=== PATIENT | male | born 1995 | race Caucasian/White ===

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

== ENCOUNTER → 2017-11-17 | Outpatient (CLI) | payer OTHER, BC ==
[2017-11-21 00:07] LABS: HERPES ZOSTER, VARICELLA IgG 3774 index (Immune >165)
[2017-11-21 00:07] LABS: HERPES ZOSTER, VARICELLA IgM <0.91 index (0.00-0.90)
== END ==
LOC: M WUC 15:16
DX: Z11.59 Encounter for screening for other viral diseases (principal)
CPT/HCPCS: 86787

== ENCOUNTER 2018-10-14 16:14 | Emergency (ER) | payer BC, OTHER ==
[~2018-10-14] VITALS: Ht 177.8 cm; Wt 73.5 kg
[~2018-10-14 16:14] MED LIST changes: +PERC5TAB12 PO
[2018-10-14] MEDS ORDERED: PAXI30TA11 PO (16:20)
[2018-10-14] MEDS ORDERED: NS 1,000 ML IV ONE (16:30)
[2018-10-14 16:54] LABS: BASO # 0.1 10^3/uL (0.0-0.2); BASO % 0.8 % (0.0-1.0); EOS % 0.3 % (0.0-3.0); HEMATOCRIT 47.5 % (42.0-52.0); HEMOGLOBIN 16.5 g/dl (13.5-17.5); LYMPH % 16.8 % (24.0-44.0); MEAN CORPUSCULAR HEMOGLOBIN 31.2 pg (27.0-33.0); MEAN CORPUSCULAR HGB CONC 34.7 g/dl (32.0-36.5); MEAN CORPUSCULAR VOLUME 89.8 fl (80.0-96.0); MONO # 1.1 10^3/uL (0.0-0.8); MONO % 18.1 % (0.0-5.0); NEUTROPHILS # 3.9 10^3/uL (1.8-7.7); NEUTROPHILS % 63.7 % (36.0-66.0); PLATELET COUNT, AUTOMATED 157 10^3/uL (150-450); RED BLOOD COUNT 5.29 10^6/uL (4.30-6.10); WHITE BLOOD COUNT 6.1 10^3/uL (4.0-10.0)
[2018-10-14 17:14] LABS: ALT/SGPT 26 U/L (12-78); BILIRUBIN,TOTAL 0.5 MG/DL (0.2-1.0); BLOOD UREA NITROGEN 10 MG/DL (7-18); CALCIUM LEVEL 8.5 MG/DL (8.5-10.1); CARBON DIOXIDE LEVEL 29 MEQ/L (21-32); CHLORIDE LEVEL 103 MEQ/L (98-107); CREATININE FOR GFR 0.98 MG/DL (0.70-1.30); GLOMERULAR FILTRATION RATE > 60.0 (>60); GLUCOSE, FASTING 96 MG/DL (70-100); SODIUM LEVEL 139 MEQ/L (136-145); TOTAL PROTEIN 7.3 GM/DL (6.4-8.2)
[2018-10-14] MEDS ORDERED: ONDANSETRON 4MG/2ML VIAL (J2405) IV ONE (17:30)
[2018-10-14] MEDS ORDERED: KETOROLAC 30 MG/ML VIAL (J1885) IV ONE (17:30)
[2018-10-14 17:40] LABS: MONO REFLEX EBV COMP NEGATIVE (NEGATIVE)
--- NOTE | 2018-10-14 18:10 | REPVR ---
EXAM: CT Head Without Contrast EXAM DATE/TIME: 10/14/2018 5:34 PM CLINICAL HISTORY: 23 years old, male; Pain; Headache not specified; Additional info: Severe headache TECHNIQUE: Imaging protocol: Axial computed tomography images of the head without contrast. Radiation optimization: All CT scans at this facility use at least one of these dose optimization techniques: automated exposure control; mA and/or kV adjustment per patient size (includes targeted exams where dose is matched to clinical indication); or iterative reconstruction. COMPARISON: MRI-Brain without Contrast 12/20/2014 2:21 PM FINDINGS: Brain: No intracranial mass, mass effect or midline shift. No acute intracranial hemorrhage. No CT evidence of acute cortical infarct. Ventricles: Ventricles, cisterns, and sulci are normal in size for age. Bones/joints: No calvarial fracture or destructive process. Sinuses: Imaged paranasal sinuses are clear. Mastoid air cells: Mastoid air cells are normally aerated. Orbits: Imaged orbits are unremarkable. Soft tissues: No focal extracranial soft tissue swelling. IMPRESSION: No acute or concerning focal intracranial abnormality. Electronically signed by: Michael Babb On 10/14/2018 18:09:41 PM
[2018-10-14] MEDS ORDERED: cefTRIAXone SOD 2 GM in D5W MINI-BAG PLUS 50 ML IV ONE (20:00)
[2018-10-14 21:08] LABS: APPEARANCE, CSF CLEAR (CLEAR); COLOR, CSF COLORLESS (COLORLESS); CSF TUBE# CELL CNT TUBE 4
[2018-10-14 21:11] LABS: CSF TUBE# CELL CNT TUBE 1
[2018-10-14 21:12] LABS: APPEARANCE, CSF HAZY (CLEAR); COLOR, CSF PINK (COLORLESS)
[2018-10-14 21:16] LABS: CSF TUBE# GLU TUBE 3; CSF TUBE# TP TUBE 3; GLUCOSE CSF 57 MG/DL (40-75); TOTAL PROTEIN,CSF 45 MG/DL (15-45)
[2018-10-15 00:03] VITALS: BP 127/84
[2018-10-17 00:07] LABS: EBV AB TO NUCLEAR ANTIGEN >600.0 U/mL (0.0-17.9); EBV VIRAL CAPSID AG IgM <36.0 U/mL (0.0-35.9); Lyme Disease IgG/IgM Antibodie <0.91 ISR (0.00-0.90); Lyme Disease IgM Ab Quantitati <0.80 index (0.00-0.79)
== END 2018-10-15 00:04 | disposition home or self-care (01) ==
LOC: M ED 16:14
DX: B34.9 Viral infection, unspecified (principal); R51 Headache; M25.50 Pain in unspecified joint; R68.83 Chills (without fever); R05 Cough; K21.9 Gastro-esophageal reflux disease without esophagitis; F41.9 Anxiety disorder, unspecified; F32.9 Major depressive disorder, single episode, unspecified; Z88.0 Allergy status to penicillin; Z88.8 Allergy status to other drugs, medicaments and biological substances; Z79.899 Other long term (current) drug therapy
CPT/HCPCS: 36415; 62270; 70450; 80053; 82945; 83605; 84157; 85025; 86308; 86617; 86663; 86664; 86665; 87040; 87070; 87205; 87483; 89050; 89051; 96365; 96366; 96375; 99284; J0696; J1885; J2405

== ENCOUNTER → 2020-12-08 | Outpatient (CLI) | payer BC, OTHER ==
[~2020-12-08] MED LIST changes: +CLIN75CA PO; +OMEP40CA4 PO; +PAXI30TA11 PO
== END ==
LOC: M LABSMTC 10:47
PROVIDERS: ATTEND Anesthesiology
DX: Z01.812 Encounter for preprocedural laboratory examination (principal); Z20.828 Contact with and (suspected) exposure to other viral communicable diseases

== ENCOUNTER 2020-12-13 09:18 | Day surgery (SDC) | payer BC ==
[~2020-12-13] VITALS: Ht 177.8 cm; Wt 83.4 kg
[~2020-12-13 09:18] MED LIST changes: +LIDOCAINE 1% MDV 20ML VIAL SQ PRN
[2020-12-13] MEDS ORDERED: LR 1,000 ML IV ONE (09:30)
[2020-12-13] MEDS ORDERED: METHYLENE BLUE 0.5% (5MG/ML) 10 ML AMP (PROVAYBLUE) As Ordered ONE (10:15)
[2020-12-13] MEDS ORDERED: EPINEPHrine 1MG/ML INJ 30ML MD-VIAL As Ordered ONE (10:15)
[2020-12-13] MEDS ORDERED: LIDOCAINE W/EPINEPHRINE 1% 20ML VIAL As Ordered ONE (10:15)
[2020-12-13] MEDS ORDERED: SUGAMMADEX SODIUM 500 MG/5 ML VIAL (BRIDION) As Ordered ONE (11:15)
[2020-12-13] MEDS ORDERED: fentaNYL 100 MCG/2 ML INJECTION (J3010) As Ordered ONE (11:15)
[2020-12-13] MEDS ORDERED: dexameTHASONE 4 MG/ML 1ML VIAL (J1100 PER 1MG) As Ordered ONE (11:15)
[2020-12-13] MEDS ORDERED: MIDAZOLAM INJ 2MG/2ML VIAL (J2250 PER 1MG) As Ordered ONE (11:15)
[2020-12-13] MEDS ORDERED: LIDOCAINE 2% 100MG/5ML SDV (FOR ANES.) As Ordered ONE (11:15)
[2020-12-13] MEDS ORDERED: ROCURONIUM BROMIDE 50 MG/5 ML VIAL As Ordered ONE (11:15)
[2020-12-13] MEDS ORDERED: propofoL 200 MG/20 ML VIAL As Ordered ONE (11:15)
[2020-12-13] MEDS ORDERED: HYDROmorphone HCL 2 MG/ML 1ML VIAL As Ordered ONE (11:15)
[2020-12-13] MEDS ORDERED: ONDANSETRON 4MG/2ML VIAL As Ordered ONE (11:15)
[2020-12-13] MEDS ORDERED: LR 1,000 ML IV SCH ×2 (12:40)
[2020-12-13] MEDS ORDERED: oxyCODONE 5MG TAB PO PRN (12:40)
[2020-12-13] MEDS ORDERED: fentaNYL 100 MCG/2 ML INJECTION (J3010) IV PRN (12:40)
[2020-12-13] MEDS ORDERED: METOCLOPRAMIDE INJ 10MG/2ML VIAL (J2765 PER 1) IV PRN (12:40)
[2020-12-13] MEDS ORDERED: ONDANSETRON 4MG/2ML VIAL IV PRN (12:40)
[2020-12-13] MEDS ORDERED: ACETAMINOPH W/CODEINE #3 TAB UD PO PRN (12:45)
--- NOTE | 2020-12-13 13:50 | RO ---
OPERATIVE NOTE DATE OF OPERATION: 12/13/2020 PREOPERATIVE DIAGNOSIS: Nasoseptal deviation, chronic rhinitis. POSTOPERATIVE DIAGNOSIS: Nasoseptal deviation, chronic rhinitis. PROCEDURE: Bilateral turbinectomies, septoplasty. SURGEON: CARLOS MAZARIEGOS MD DESCRIPTION OF PROCEDURE: Under general anesthesia, the patient was prepped and draped in the usual manner. I infiltrated the submucosa with Lidocaine and Epinephrine. I used pledgets soaked in adrenaline 1:100,000. I made an incision anteriorly on the left side and elevated the subperichondrial and periosteal plane. I then divided the quadrangular cartilage from the ethmoid plate and maxillary crest. I removed portions of both maxillary crest and ethmoid plate and there was a vomer spur on the left side. Once this was done, the septum was straight. The incision was closed with interrupted 4-0 Chromic, 4-0 Monocryl. I made an incision anterior to the inferior turbinates on both sides. I elevated the mucosa. I used a micro debrider to remove a portion of the desirae on both sides. I closed the incision with Monocryl 4-0. The patient tolerated the procedure well. Less than 20 mL estimated blood loss. The patient tolerated the procedure well, was extubated and transferred to the Recovery Room in excellent condition.
[2020-12-13] MEDS ORDERED: OXYMETAZOLINE 0.05% NASAL SPRAY (AFRIN) SCH (15:45)
[2020-12-13] MEDS ORDERED: MORPHINE 10 MG/ML 1ML VIAL (J2270) IV ONE (15:55)
[2020-12-13] MEDS ORDERED: SUCCINYLCHOLINE 100 MG/5 ML SYRINGE (J0330) ONE (17:00)
[2020-12-13] MEDS ORDERED: propofoL 200 MG/20 ML VIAL ONE (17:00)
[2020-12-13] MEDS ORDERED: LIDOCAINE 2% 100MG/5ML SDV (FOR ANES.) ONE (17:00)
[2020-12-13] MEDS ORDERED: ROCURONIUM BROMIDE 50 MG/5 ML VIAL ONE (17:00)
[2020-12-13] MEDS ORDERED: fentaNYL 100 MCG/2 ML INJECTION (J3010) ONE (17:01)
[2020-12-13] MEDS ORDERED: EPINEPHrine 1MG/ML INJ 30ML MD-VIAL ONE (17:01)
[2020-12-13] MEDS ORDERED: dexameTHASONE 4 MG/ML 1ML VIAL (J1100 PER 1MG) ONE (17:35)
[2020-12-13] MEDS ORDERED: SUGAMMADEX SODIUM 500 MG/5 ML VIAL (BRIDION) ONE (17:35)
[2020-12-13] MEDS ORDERED: ONDANSETRON 4MG/2ML VIAL ONE (17:35)
[2020-12-13 19:52] VITALS: BP 163/81
--- NOTE | 2020-12-14 09:16 | RO ---
OPERATIVE NOTE DATE OF OPERATION: 12/13/2020 PREOPERATIVE DIAGNOSIS: Postop nasal hemorrhage. POSTOPERATIVE DIAGNOSIS: Postop nasal hemorrhage. PROCEDURE: Control postop nasal hemorrhage, nasal cautery, nasal packing. SURGEON: Harjinder Griffith MD BUSINESS ADMINISTRATION PROFESSOR: ANESTHESIA: DESCRIPTION OF PROCEDURE: Under general anesthesia with the patient intubated, the patient was draped in usual manner. I removed the packing I had placed in his nose. There was bleeding anteriorly in inferior turbinate on the left side which I cauterized with suction cautery. I put packing 0.5 inch Vaseline gauze both sides of the nose. The patient tolerated the procedure well. 50 mL estimated blood loss. The patient was extubated and transferred to recovery room in excellent condition.
[2020-12-14] MEDS ORDERED: LR 1,000 ML IV SCH (10:45)
[2020-12-14] MEDS ORDERED: ACETAMINOPH W/CODEINE #3 TAB UD PO PRN (10:45)
== END 2020-12-14 14:30 | disposition home or self-care (01) ==
LOC: M SDC 09:18 → M MS5PR 20:00 → M SDC 12-14 14:30
PROVIDERS: ATTEND Otolaryngology
DX: J34.2 Deviated nasal septum (principal); J31.0 Chronic rhinitis; J95.830 Postprocedural hemorrhage of a respiratory system organ or structure following a respiratory system procedure; K21.9 Gastro-esophageal reflux disease without esophagitis; F41.9 Anxiety disorder, unspecified; F32.9 Major depressive disorder, single episode, unspecified; F17.218 Nicotine dependence, cigarettes, with other nicotine-induced disorders; Z79.899 Other long term (current) drug therapy; Z88.0 Allergy status to penicillin
CPT/HCPCS: 30140; 30520; 30901; 88300; 88305; J0330; J1100; J1170; J2250; J2405; J3010; Q9968

== ENCOUNTER → 2021-04-04 | Outpatient (CLI) | payer BC ==
[~2021-04-04] MED LIST changes: -LIDOCAINE 1% MDV 20ML VIAL SQ PRN
--- NOTE | 2021-04-09 20:55 | SLEEPHOME ---
DATE: 04/04/2021 ORDERED BY: Felisha Garcia NP Diagnostic home sleep testing was performed due to concern for the obstructive sleep apnea syndrome. For testing, a Nox T3 respiratory monitoring device was used. Continuous record was made of pulse, oxygen saturation, air flow, chest and abdominal strain, and body position. Nine hours and 59 minutes of data were reviewed. There were 9 hours and 34 minutes marked as time in bed. During the interval marked time in bed, there were 443 respiratory events identified of 10 seconds in duration or greater for a respiratory event index of 46.2. The events were primarily obstructive. Baseline pulse rate was 71. Pulse rate ranged 51 to 104. Baseline saturation was 94%. Saturations fell to 86%. Testing was performed in both the supine and nonsupine positions. IMPRESSION: Abnormal home sleep testing with repetitive respiratory events and oxygen desaturations to 86% with a respiratory event index of 46.2 is consistent with the obstructive sleep apnea syndrome. RECOMMENDATION: The patient should be encouraged to undergo a formal sleep evaluation. cc: DARBY JERONIMO, PAC
== END ==
LOC: M SLEEP HO 12:07
PROVIDERS: ATTEND Nurse Practitioner Adult Health
DX: G47.33 Obstructive sleep apnea (adult) (pediatric) (principal); R06.83 Snoring; R40.0 Somnolence

== ENCOUNTER → 2021-07-18 | Outpatient (CLI) | payer BC | LOC: M SLEEP 20:00 | PROVIDERS: ATTEND Nurse Practitioner Adult Health | DX: G47.33 Obstructive sleep apnea (adult) (pediatric) (principal) ==

== ENCOUNTER → 2024-05-27 | Outpatient (REF) | payer OTHER ==
[~2024-05-27] MED LIST changes: -CLIN75CA PO; +CLIN75CA2 PO; -PAXI30TA11 PO; +PAXI30TA12 PO
[2024-05-27 14:31] LABS: SEMEN APPEARANCE OPAQUE (OPAQUE); SEMEN VISCOSITY LIQUID (LIQUID); TOTAL PROGRESSIVE SPERM 73.3 M/Ejac.; WBC CONCENTRATION <=1 M/ml (<=1 M/ml)
== END ==
LOC: M LAB REF 10:24
PROVIDERS: ATTEND Internal Medicine
DX: N46.9 Male infertility, unspecified (principal)